=== PATIENT | male | born 1980 | race Caucasian/White ===

== ENCOUNTER 2023-11-09 19:41 | Emergency (ER) | payer MEDICAID, SELFPAY ==
[2023-11-09 19:52] VITALS: BP 148/67; PULSE 60; RESP 20; TEMP 36.6; O2SAT 100; BMI 17.8
--- NOTE | 2023-11-09 20:15 | ED_ITS ---
HPI - General Adult General Time Seen by Provider: 20:15 Date Seen: 11/09/23 Chief complaint: Skin/Abscess/Foreign Body Stated complaint: muscular pain Time Seen by Provider: 11/09/23 20:15 Source: patient, RN notes reviewed and old records reviewed Mode of arrival: ambulatory Limitations: no limitations History of Present Illness HPI narrative: [place] is a very pleasant 43-year-old gentleman with complicated past medical history including MS, colon cancer, history of stroke who comes to the emergency room with concerns regarding redness and pain in his right thigh. [place] states that the area on his right thigh became reddened and painful over the past 48 hours. He was seen at urgent care yesterday and placed on Keflex for what they thought was cellulitis. He comes to the emergency room today because his thigh is still incredibly painful and feels like it has gotten bigger. He notes no increase in redness however any denies fever or chills. He does injections for his MS 3 times a week and this is an area in which he injects. He has never had an infection like this before. He denies a history of MRSA. He has had some mild abdominal pain but denies nausea vomiting. Related Data Home Medications Medication Instructions Recorded Confirmed acetaminophen [Tylenol] PO 11/08/23 11/08/23 atorvastatin 20 mg tablet mg PO 11/08/23 11/08/23 cholecalciferol (vitamin D3) PO 11/08/23 11/08/23 interferon beta-1a (albumin) 44 subcut 11/08/23 11/08/23 mcg/0.5 mL subcutaneous pen injector (Rebif Rebidose) multivitamin with iron [Daily PO 11/08/23 11/08/23 Vitamin with Iron] sumatriptan succinate 100 mg tablet mg PO DAILY 11/08/23 11/08/23 Previous Rx's Medication Instructions Recorded cephalexin 500 mg capsule 500 mg PO QID 5 days #20 caps 11/08/23 sulfamethoxazole 800 1 tab PO BID #13 tabs 11/09/23 mg-trimethoprim 160 mg tablet (Bactrim DS) Allergies Allergy/AdvReac Type Severity Reaction Status Date / Time ibuprofen Allergy Severe GI Bleed Verified 11/09/23 19:55 simvastatin Allergy Mild Hives Verified 11/09/23 19:55 Review of Systems Status of ROS: Reports: 10 or more systems reviewed and unremarkable except as noted in History and below Const: Denies: fever or chills PFSH PFSH Social History Smoking Status: Never smoker Do you use any of these nicotine containing products: None Second hand tobacco smoke exposure: No How often do you have a drink containing alcohol: monthly or less How many standard drinks containing alcohol do you have on a typical day: 1 or 2 AUDIT-C Alcohol total score: 1 Non-prescribed substance use: denies use service: No Exam Narrative: Exam Narrative: [place] is alert and oriented. He presents with his significant other is very loving and supportive. External ears eyes nose clear. Heart with regular rate and rhythm and lungs are clear. Abdomen soft nontender. Examination of the right thighs shows a very slight pink area anterior row lateral mid thigh. There are 2 areas of superficial scabbing palmer colored the discomfort seems to be lateral to this area however. No groin lymphadenopathy. I do not palpate any fluctuance. He is able to move his legs without difficulty. Const: Vital Signs, click to edit/add: Vital Signs - 24 hr 11/09/23 19:52 Temperature 97.9 F Pulse Rate [Right Pulse Oximeter] 60 Respiratory Rate 20 Blood Pressure [Ri ght Upper Arm] 148/67 H Pulse Oximetry 100 Oxygen Delivery Me thod Room Air Documenting provider has reviewed patient's vital signs: yes Course Course ED Course: Differential diagnosis includes but is not limited to cellulitis, abscess, localized irritation. Recommend laboratory values to include a CBC, comprehensive panel, CRP as well as blood culture. Must keep in mind that patient is on medications which may limit his immune response. Therefore will also get blood cultures. CT of the right thigh is pending as well. Will need to rule out possibility of underlying necrotizing infection or abscess formation. Reevaluation(s) Reevaluation #1: CRP and white count reassuring at this time. CT shows no evidence of abscess. Vital Signs Vital signs: Initial Vital Signs Temperature 97.9 F 11/09/23 19:52 Temperature Source Temporal Artery Scan 11/09/23 19:52 Pulse Rate 60 11/09/23 19:52 Respiratory Rate 20 11/09/23 19:52 Blood Pressure 148/67 H 11/09/23 19:52 Blood Pressure Mean 94 11/09/23 19:52 Blood Pressure Position Sitting 11/09/23 19:52 Pulse Oximetry 100 11/09/23 19:52 Oxygen Delivery Method Room Air 11/09/23 19:52 Vital Signs Temperature 97.9 F 11/09/23 19:52 Pulse Rate 60 11/09/23 19:52 Respiratory Rate 20 11/09/23 19:52 Blood Pressure 148/67 H 11/09/23 19:52 Pulse Oximetry 100 11/09/23 19:52 Oxygen Delivery Method Room Air 11/09/23 19:52 Temperature 97.9 F 11/09/23 19:52 Pulse Rate 60 11/09/23 19:52 Respiratory Rate 20 11/09/23 19:52 Blood Pressure 148/67 H 11/09/23 19:52 Pulse Oximetry 100 11/09/23 19:52 Oxygen Delivery Method Room Air 11/09/23 19:52 Medical Decision Making MDM Narrative Medical decision making narrative: 1. Cellulitis- patient does have CT evidence of some inflammation and likely this is consistent with a cellulitis. No history of MRSA but given the fact that he has been on Keflex for 24 hours with what he perceives as worsening symptoms do elect to add additional antibiotic. I do think it is important that we cover for MRSA and therefore suggest Bactrim. there is some disagreement of on proper dosing whether it be 2 double-strength tabs b.i.d. or 1 tablet b.i.d.. Recent data shows no difference in outcomes and therefore we will use 1 tablet b.i.d..First dose given in the emergency room tonight with subsequent doses sent to his pharmacy. I would like him to continue his Keflex while using this medication. I would like him to push fluids, use warm packs to area of discomfort and to try to limit activity and walking. Therefore have also given him a note for work off through next SaturdayNovember 15. We did discuss the use of Bactrim which can increase rash formation. He should discontinue immediately if this should happen. 2. Disposition -home at this time. Push fluids. No work. Suggest follow-up with primary MD Dr. Leach at the [facility] over the next 6 days. If [place] develops fever, vomiting, worsening symptoms he should seek medical attention and not wait for a clinic visit. Medical Records Medical records reviewed: Yes I reviewed the patient's medical records Lab Data Lab results reviewed: Yes I reviewed the patient's lab results Labs: Lab Results 11/09/23 Range/Units 20:36 WBC 5.32 (4.50-11.00) K/uL RBC 3.35 L (4.30-5.90) m/uL Hgb 10.7 L (13.5-17.5) gm/dL Hct 32.7 L (37.0-53.0) % MCV 98 (80-100) fL MCH 32 (26-34) pg MCHC 33 (32-36) gm/dL RDW Coeff of Nikolas 13.4 (11.5-15.5) % Plt Count 266 (140-440) K/uL Neut % (Auto) 47.7 (42.0-72.0) % Lymph % (Auto) 29.7 (20-44) % [place] % (Auto) 11.1 H (0.0-11.0) % Eos % (Auto) 10.7 H (0.0-7.0) % Baso % (Auto) 0.6 (0.0-3.0) % Neut # (Auto) 2.54 (1.7-7.0) K/uL Lymph # (Auto) 1.58 (0.90-2.90) K/uL [place] # (Auto) 0.60 (0.00-0.90) K/UL Eos # (Auto) 0.60 H (0.00-0.50) K/uL Baso # (Auto) 0.03 (0.00-0.30) K/uL Abs Immat Gran (auto) 0.01 (0.00-0.30) K/uL Imm/Tot Granulo (auto) 0.2 % Sodium 140 (135-149) mmol/L Potassium 3.8 (3.6-5.1) mmol/L Chloride 105 (96-114) mmol/L Carbon Dioxide 27 (20-32) mmol/L Anion Gap 8 (7-15) mEq/L BUN 17 (5-24) mg/dL Creatinine 0.7 (0.5-1.5) mg/dL Estimated Creat Clear 116.64 Estimated GFR 117 ml/min Glucose 105 (60-115) mg/dL Calcium 8.7 (8.4-10.6) mg/dL Total Bilirubin 0.2 (0.1-1.5) mg/dL AST 34 (12-35) U/L ALT 36 (4-50) U/L Alkaline Phosphatase 63 (40-150) U/L C-Reactive Protein 0.7 (0.5-1.0) mg/dL Total Protein 7.4 (6.0-8.3) g/dL Albumin 4.2 (3.3-5.0) g/dL Imaging Data CT- Other: Attestation: I have reviewed the pertinent imaging results. My impression: No obvious abscess by my read. Radiologist's impression: Findings: Small region of subcutaneous inflammatory stranding in the proximal lateral thigh overlying the vastus lateralis. There are a few nonspecific hyperdense foci within this area. No focal fluid collection to indicate an abscess. No discrete muscular expansion or edema. The osseous structures are unremarkable. The imaged intrapelvic organs are unremarkable. Impression: Small region of subcutaneous inflammation in the proximal lateral thigh overlying the vastus lateralis. This could represent focal cellulitis. No evidence for abscess or osteomyelitis. Few nonspecific hyperdense foci in this area. Cannot entirely exclude foreign bodies/debris. Discharge Plan Discharge Clinical Impression: Cellulitis Patient Disposition: Home, Self-Care Condition: Unchanged Additional Instructions: Continue Bactrim tomorrow morning. Continue Keflex at this time. Please follow-up with your primary MD on Saturday for recheck. If you started experiencing fever chills vomiting or worsening symptoms you will need to return to the emergency room. Prescriptions: New sulfamethoxazole-trimethoprim [Bactrim DS] 800-160 mg tablet 1 tab PO BID Qty: 13 0RF No Action Rebif Rebidose 44 mcg/0.5 mL pen injector subcut sumatriptan succinate 100 mg tablet PO DAILY acetaminophen [Tylenol] PO atorvastatin 20 mg tablet PO multivitamin with iron [Daily Vitamin with Iron] PO cholecalciferol (vitamin D3) PO cephalexin 500 mg capsule 500 mg PO QID 5 Days Qty: 20 0RF Follow Up/Referrals: Nicolas Leach MD [Primary Care Provider] - Stand Alone Forms: MyHealth Info Instructions
--- NOTE | 2023-11-09 20:23 | CRLHL7_ITS ---
For Patients: As a result of the Century Cures Act, medical imaging exams and procedure reports are released immediately into your electronic medical record. You may view this report before your referring provider. If you have questions, please contact your health care provider. Indication: Skin redness, pain over proximal, lateral Right femur region Technique: Noncontrast CT of the right femur. Please note that all CT scans at this facility use dose modulation, iterative reconstruction, and/or weight-based dosing when appropriate to reduce radiation dose to as low as reasonably achievable. Comparison: None. Findings: Small region of subcutaneous inflammatory stranding in the proximal lateral thigh overlying the vastus lateralis. There are a few nonspecific hyperdense foci within this area. No focal fluid collection to indicate an abscess. No discrete muscular expansion or edema. The osseous structures are unremarkable. The imaged intrapelvic organs are unremarkable. Impression: Small region of subcutaneous inflammation in the proximal lateral thigh overlying the vastus lateralis. This could represent focal cellulitis. No evidence for abscess or osteomyelitis. Few nonspecific hyperdense foci in this area. Cannot entirely exclude foreign bodies/debris. Please note that all CT scans at this facility use dose modulation, iterative reconstruction, and/or weight-based dosing when appropriate to reduce radiation dose to as low as reasonably achievable. Dictated by Dhruv Martínez MD @ 11/09/2023 9:38:44 PM (Electronically Signed)
[2023-11-09 20:48] LABS: Basophils Absolute Auto 0.03 K/uL (0.00-0.30); Basophils Percent Auto 0.6 % (0.0-3.0); Eosinophils Percent Auto 10.7 % (0.0-7.0); Hematocrit 32.7 % (37.0-53.0); Hemoglobin* 10.7 gm/dL (13.5-17.5); Immature Granulocytes Abs Auto 0.01 K/uL (0.00-0.30); Immature Granulocytes Pct Auto 0.2 %; Lymphocytes Absolute Auto 1.58 K/uL (0.90-2.90); Lymphocytes Percent Auto 29.7 % (20-44); Mean Corpuscular HGB Conc 33 gm/dL (32-36); Mean Corpuscular Hemoglobin 32 pg (26-34); Mean Corpuscular Volume 98 fL (80-100); Monocytes Percent Auto 11.1 % (0.0-11.0); Neutrophils Absolute Auto 2.54 K/uL (1.7-7.0); Neutrophils Percent Auto 47.7 % (42.0-72.0); Platelet Count* 266 K/uL (140-440); RDW Coefficient of Variation % 13.4 % (11.5-15.5); Red Blood Count 3.35 m/uL (4.30-5.90); White Blood Count* 5.32 K/uL (4.50-11.00)
[2023-11-09 20:52] LABS: Slide Review Reflex No
[2023-11-09 21:09] LABS: Albumin* 4.2 g/dL (3.3-5.0); Chloride* 105 mmol/L (96-114); Potassium* 3.8 mmol/L (3.6-5.1); Sodium* 140 mmol/L (135-149)
[2023-11-09 21:11] LABS: Creatinine* 0.7 mg/dL (0.5-1.5); Est. Creatinine Clearance* 116.64; Estimated Glomerular Filt Rate 117 ml/min
[2023-11-09 21:12] LABS: Alanine Aminotransferase* 36 U/L (4-50); Alkaline Phosphatase* 63 U/L (40-150); Anion Gap 8 mEq/L (7-15); Aspartate Amino Transferase* 34 U/L (12-35); Bilirubin Total* 0.2 mg/dL (0.1-1.5); Blood Urea Nitrogen* 17 mg/dL (5-24); Carbon Dioxide* 27 mmol/L (20-32); Glucose* 105 mg/dL (60-115); Total Protein* 7.4 g/dL (6.0-8.3)
[2023-11-09 21:13] LABS: Calcium* 8.7 mg/dL (8.4-10.6)
[2023-11-09 21:15] LABS: C Reactive Protein* 0.7 mg/dL (0.5-1.0)
--- NOTE | 2023-11-09 22:28 | ED.NURSE ---
Pt discharged in stable condition. Work note given by Dr. Dwyer. Copy made and sent to medical records for patient chart.
== END 2023-11-09 22:28 | disposition home or self-care (01) ==
PROVIDERS: Emergency Provider Family Medicine; PCP Family Medicine
DX: L03.115 Cellulitis of right lower limb (principal)
CPT/HCPCS: 36415; 73700; 80053; 85025; 86140; 87040; 99284

== ENCOUNTER 2024-11-25 22:10 | Emergency (ER) | payer MEDICAID, SELFPAY ==
[2024-11-25 22:16] VITALS: BP 131/83; PULSE 72; RESP 16; TEMP 37; O2SAT 100; BMI 18.5
[2024-11-25 22:20] VITALS: RESP 16; TEMP 37; O2SAT 100
[2024-11-25 22:30] VITALS: O2SAT 100
--- OUTSIDE RECORDS SUMMARY | 2024-11-25 22:50 | XMS_ITS | Clinical Summary ---
Author Organization [employer] [facility] Address [place], [place] [address] Care Team Providers Care Section Weaver Name Role Phone Nicolas Leach MD Primary Care Provider Allergies Active Allergy Reactions Criticality Noted Date Comments Ibuprofen Other - Describe In Comment Field 10/17/2020 Red stools. Simvastatin Hives 08/14/2016 Medications multivitamin (MULTIPLE VITAMINS) tablet Take 1 tablet by mouth once daily. 0 5 Active Cholecalciferol, Vitamin D3, (VITAMIN D-3) 2,000 unit tablet Take 1 tablet by mouth once daily. 0 5 Active ferrous sulfate, 65 mg elemental, tablet Daily Active SUMAtriptan (IMITREX) 100 mg tablet TAKE 1 TABLET NEEDED FOR MIGRAINE. MAY REPEAT DOSE ONE TIME IN 2 HOURS IF MIGRAINE DOES NOT RESOLVE. DO NOT EXCEED 2 TABLETS IN 24 HOURS. 2 Active atorvastatin (LIPITOR) 20 mg tabletIndications: Mixed hyperlipidemia Take 1 Tablet (20 mg) by mouth at bedtime. 90 Tablet 3 5 Active REBIF REBIDOSE 44 mcg/0.5 mL pnij 7 025 Discontin ued(*Leora ent states no longer taking) atorvastatin (LIPITOR) 20 mg tabletIndications: Mixed hyperlipidemia Take 1 Tablet (20 mg) by mouth at bedtime. 90 Tablet 3 3 025 Discontin ued(Reord er (E-cancel not sent)) Active Problems Problem Noted Date Diagnosed Date colon cancer 11/2019. s/p Right Hemicoloctomy 02/0212/15/2019 Overview (12/15/2019): Colonoscopy 11/2019 cancer, polyp, repeat colonoscopy 1 year post surgery Assessment & Plan (11/29/2021 10:57 AM SPECIFICATIONS WRITER): Cancer free since 2019. Followed by GI. Myopia of both eyes 03/21/2017 Multiple sclerosis, relapsing-remitting 03/28/20 16 GERD (gastroesophageal reflux disease) 2 Mixed hyperlipidemia 03/21/2011 Insomnia, unspecified 08/21/2010 Migraine Resolved Problems Problem Noted Date Diagnosed Date Resolved Date Cerebrovascular accident (CVA) 08/14/2016 09/25/2019 Stroke 02/01/2014 08/14/2016 Stroke 10/30/2013 10/30/2013 Routine general medical exam ination at a health care facility 09/12/2011 11/02/2011 Overview (09/12/2011): 03-19-2011 Unspecified tinnitus 09/22/2010 011 Encounters Date Type Department Care Team Description 11/25/2024 Nurse Triage [facility] [address] [place] [address] Nicolas Leach MD Influenza Like Illness 11/02/2024 8:50 AM SPECIFICATIONS WRITER Office Visit [facility] [address] [place] [address] Nicolas Leach MD Physical (44 year old) 11/02/2024 Travel 08/28/2024 9:15 AM CDT Nurse/Clinic Staff Only [facility] [address] [place] [address] [address] Immunization/Injecti on; Immunization/Injecti on 08/28/2024 Travel 08/25/2024 Travel from Last 3 Months Immunizations Name Administration Dates Next Due AMB Influenza, IIV4 PF (=>6 mos Flulaval,Fluzone Fluarix)(Flu Clinic Only) 08/05/2020,08/11/2019,07/28/2014 COVID-19 vaccine ([employer] 30mcg/0.3mL) PF, MDV 02/07/2021,01/17/2021 INFLUENZA, IIV3 PF (AGE >= 6 MO) 08/28/2024 Influenza, IIV3 (Age >=3 years) 08/21/2013 Influenza, IIV4 08/09/2023,,08/14/2021,08/25/20 18,08/16/2017,08/14/2016,07/20/2015 Influenza, IIV4 (=>6mos) MDV 08/16/2017 Tdap 10/15/2023,03/19/2011 Family History * Patient is adopted Medical History Relation Name Comments Unknown Brother Jenn Velazquez Half brot her Alcohol/Drug Father Danny Escobar abandoned fami ly Unknown Father Danny Escobar Legal father Unknown Maternal Grandfather Unknown Unknown Maternal Grandmother Unknown Alcohol/Drug Mother Darleen Escobar at a yo [place] age in a MVA Unknown Mother Darleen Escobar Legal mother Cancer-prostate Neg. 1 Heart Disease Neg. 2 Diabetes Neg. 3 Seizures Neg. 4 Unknown Paternal Grandfather Unknown Unknown Paternal Grandmother Unknown Unknown Sister Gianna Velazquez Half-sister Relation Name Status Comments Brothmonica Velazquez Father Danny Escobar Maternal Grandfather Unknown Maternal Grandmother Unknown Mother Darleen Escobar Neg. 1 Neg. 2 Neg. 3 Neg. 4 Paternal Grandfather Unknown Paternal Grandmother Unknown Sister Gianna Velazquez Social History Tobacco Use Types Packs/Day Years Used Date Smoking Tobacco: Never Smokeless Tobacco: Never Tobacco Cessation:Counseling Given: No Alcohol Use Standard Drinks/Week Comments No 0 (1 standard drink = 0.6 oz pur e alcohol) PHQ-2 Answer Date Recorded PHQ-2 TOTAL SCORE 0 10/15/2023 Social Connections Answer Date Recorded Do you often feel lonely or isolated from those around you? 0 11/02/2024 Financial Resource Strain Answer Date R ecorded Difficulty of Paying Living Expenses 3 11/02/2024 Difficulty of Paying Living Expenses Not on file 11/02/2024 Food Insecurity Answer Date Recorded Do you worry your food will run out before you are able to buy more? 1 11/02/2024 Transportation Needs Answer Date Record ed Does lack of transportation keep you from medica l appointments? 1 11/02/2024 Does lack of transportation keep you from work, meetings or getting things that you need? 1 11/02/2024 Housing Stability Answer Date Recorded What is your housing situation today? 1 11/02/2024 Utilities Answer Date Recorded Do you have trouble paying f or utilities (for example, heat, electricity, water, phone)? 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 Not on file Not on file Not on file Obstetrics History Last Filed Vital Signs Vital Sign Reading Time Taken Comments Blood Pressure 125/79 11/02/2024 8:47 AM SPECIFICATIONS WRITER Pulse 55 11/02/2024 8:47 AM SPECIFICATIONS WRITER Temperature 36.7 C (98 F) 08/09/2023 10:32 AM CDT Respiratory Rate 16 09/04/2023 1:57 PM SPECIFICATIONS WRITER Oxygen Saturation 100% 11/02/2024 8:47 AM SPECIFICATIONS WRITER Inhaled Oxygen Concentration - - Weight 65 kg (143 lb 6.4 oz) 11/02/2024 8:47 AM SPECIFICATIONS WRITER Height 182 cm (5' 11.65) 11/02/2024 8:47 AM SPECIFICATIONS WRITER Body Mass Index 19.64 11/02/2024 8:47 AM SPECIFICATIONS WRITER Plan of Treatment Health Maintenance Due Date Last Done Comments Pneumococcal series for age 6-49 (1 of 2 - PCV) 1998 COVID-19 vaccine series (2023- season) 2024 09/04/2021, 02/07/2021, 01/17/2021 Depression screening for age 12+ 10/15/2024 10/15/2023, 10/05/2022, 08/06/2022, Additional history exists BMI (ht and wt on same day) for age 18+ 11/02/2025 11/02/2024, 11/26/2023, 10/15/2023, Additional history exists Lipids for age 45-75 11/02/2029 11/02/2024, 10/15/2023, 10/05/2022, Additional history exists Colonoscopy through age 75 12/11/202912/11, 12/11/2019, 12/11/2019 Tetanus booster 10/15/2033 10/15/2023, 03/19/2011 HIV for age 15-65 Completed 10/05/2022 Hepatitis C screening for ag e 18-79 Completed 10/05/2022 Tdap Completed 10/15/2023, 03/19/2011 Influenza for age 9-49 Completed 4, 08/09/2023, 08/10/2022, Additional history exists Procedures Procedure Name Priority Date/Time Associated Diagnosis Comments LIPID PANEL W REFLEX MEASURED LDL Routine 11/02/2024 9:18 AM SPECIFICATIONS WRITER Mixed hyperlipidemia BASIC METABOLIC PANEL Routine 11/02/2024 9:18 AM SPECIFICATIONS WRITER Prediabetes HEMOGLOBIN A1C Routine 11/02/2024 9:18 AM SPECIFICATIONS WRITER Prediabetes HEPATIC FUNCTION PANEL Routine 11/02/2024 9:18 AM SPECIFICATIONS WRITER Abnormal LFTs ANTI HIV 1/2 Routine 10/05/2022 9:46 AM SPECIFICATIONS WRITER Encounter for screening for HIV ANTI HCV Routine 10/05/2022 9:46 AM SPECIFICATIONS WRITER Need for hepatitis C screening test COLONOSCOPY 12/11/2019 8:18 AM SPECIFICATIONS WRITER from Last 3 Months or Most Recently Relevant to Health Maintenance Results * (ABNORMAL) HEMOGLOBIN A1C (11/02/2024 9:18 AM SPECIFICATIONS WRITER) HEMOGLOBIN A1C 5.8(H) <5.7 % of total Hgb [facility] Comment: For someone without known diabetes, a hemoglobin A1c value between 5.7% and 6.4% is consistent with prediabetes and should be confirmed with a follow-up test. For someone with known diabetes, a value <7% indicates that their diabetes is well controlled. A1c targets should be individualized based on duration of diabetes, age, comorbid conditions, and other considerations. This assay result is consistent with an increased risk of diabetes. Currently, no consensus exists regarding use of hemoglobin A1c for diagnosis of diabetes for children. Blood BLOOD SPECIMEN / Unknown 11/02/2024 9:18 AM SPECIFICATIONS WRITER 11/02/2024 9:19 AM SPECIFICATIONS WRITER Nicolas Leach MD CHEMISTRY Final Result [facility] [address] [place] [address], [facility] [address] [place] [address] * (ABNORMAL) LIPID PANEL W REFLEX MEASURED LDL (11/02/2024 9:18 AM SPECIFICATIONS WRITER) [facility] Signature CHOLESTEROL, TOTAL 175 <200 mg/dL [facility] HDL CHOLESTEROL 59 > OR = 40 mg/dL [facility] TRIGLYCERIDES 70 <150 mg/dL [facility] LDL-CHOLESTEROL 100(H) mg/dL (calc) [facility] Comment: Reference range: <100 Desirable range <100 mg/dL for primary prevention; <70 mg/dL for patients with CHD or diabetic patients with > or = 2 CHD risk factors. LDL-C is now calculated using the Matt-Ordonez calculation, which is a validated novel method providing better accuracy than the Friedewald equation in the estimation of LDL-C. Matt GOVEA et al. MICHAEL. 2013;310(19): 2079-4933 (http://education.Clipik/faq/JIK347) CHOL/HDLC RATIO 3.0 <5.0 (calc) [facility] NON HDL CHOLESTEROL 116 <130 mg/dL (calc) [facility] Comment: For patients with diabetes plus 1 major ASCVD risk factor, treating to a non-HDL-C goal of <100 mg/dL (LDL-C of <70 mg/dL) is considered a therapeutic option. Blood BLOOD SPECIMEN / Unknown 11/02/2024 9:18 AM SPECIFICATIONS WRITER 11/02/2024 9:19 AM SPECIFICATIONS WRITER us Nicolas Leach MD CHEMISTRY Final Result Performing Organization Address [facility]/ZIP Co de Phone Number [facility] [address] [facility] [place] [address], [place] [phone] [facility] [address] [facility] [place] [address] * HEPATIC FUNCTION PANEL (11/02/2024 9:18 AM SPECIFICATIONS WRITER) PROTEIN, TOTAL 7.3 6.1 - 8.1 g/dL [facility] ALBUMIN 4.8 3.6 - 5.1 g/dL [facility] GLOBULIN 2.5 1.9 - 3.7 g/dL (calc) [facility] ALBUMIN/GLOBULIN RATIO 1.9 1.0 - 2.5 (calc) [facility] BILIRUBIN, TOTAL 0.8 0.2 - 1.2 mg/dL [facility] BILIRUBIN, DIRECT 0.2 < OR = 0.2 mg/dL [facility] BILIRUBIN, INDIRECT 0.6 0.2 - 1.2 mg/dL (calc) [facility] ALKALINE PHOSPHATASE 94 36 - 130 U/L [facility] AST 31 10 - 40 U/L [facility] ALT 36 9 - 46 U/L [facility] Blood BLOOD SPECIMEN / Unknown 11/02/2024 9:18 AM SPECIFICATIONS WRITER 11/02/2024 9:19 AM SPECIFICATIONS WRITER Nicolas Leach MD CHEMISTRY Final Result [facility] [address] [place] [address], [facility] [address] [place] [address] * BASIC METABOLIC PANEL (11/02/2024 9:18 AM SPECIFICATIONS WRITER) GLUCOSE 91 65 - 99 mg/dL [facility] Comment: Fasting reference interval UREA NITROGEN (BUN) 19 7 - 25 mg/dL [facility] CREATININE 1.13 0.60 - 1.29 mg/dL [facility] EGFR 82 > OR = 60 mL/min/1. 73m2 [facility] BUN/CREATININE RATIO SEE NOTE: 6 - 22 (calc) [facility] Comment: Not Reported: BUN and Creatinine are within reference range. SODIUM 141 135 - 146 mmol/L [facility] POTASSIUM 4.5 3.5 - 5.3 mmol/L [facility] CHLORIDE 105 98 - 110 mmol/L [facility] CARBON DIOXIDE 27 20 - 32 mmol/L [facility] ELECTROLYTE BALANCE 9 7 - 17 mmol/L (calc) [facility] CALCIUM 9.9 8.6 - 10.3 mg/dL [facility] Blood BLOOD SPECIMEN / Unknown 11/02/2024 9:18 AM SPECIFICATIONS WRITER 11/02/2024 9:19 AM SPECIFICATIONS WRITER us Nicolas Leach MD CHEMISTRY Final Result [facility] [address] [place] [address], [place] [phone] [address] * ANTI HCV (10/05/2022 9:46 AM SPECIFICATIONS WRITER) HEPATITIS C ANTIBODY Non-React darin Non-React darin 10/07/2022 11:19 AM SPECIFICATIONS WRITER [facility] Comment:Antibodies to HCV no t detected; does not exclude the possibility of exposure to HCV. Blood BLOOD SPECIMEN / Unknown Venipuncture / Unknown 10/05/2022 9:46 AM SPECIFICATIONS WRITER 10/05/2022 9:47 AM SPECIFICATIONS WRITER us Nicolas Leach MD SEND OUTS Final Result [facility] [address] [place] [address], [place] * ANTI HIV 1/2 (10/05/2022 9:46 AM SPECIFICATIONS WRITER) HIV-1/HIV-2 ANTIBODY Non-Reacti ve Non-Reacti ve 10/07/2022 11:19 AM SPECIFICATIONS WRITER [facility] Comment:HIV-1 p24 and HIV-1/ HIV-2 Ab not detected. Blood BLOOD SPECIMEN / Unknown Venipuncture / Unknown 10/05/2022 9:46 AM SPECIFICATIONS WRITER 10/05/2022 9:47 AM SPECIFICATIONS WRITER us Nicolas Leach MD SEND OUTS Final Result [facility] [address] [place] [address], [place] * COLONOSCOPY (12/11/2019 8:18 AM SPECIFICATIONS WRITER) 12/11/2019 8:18 AM SPECIFICATIONS WRITER Narrative Transcriptions Matt Aguilar MD - 12/11/2019 9:01 AM CST Patient Name: Berlin Barakat Procedure Date: 12/11/2019 Gender: Male Date of : 1980 Admit Type: Ambulatory Procedure: Colonoscopy Proceduralist: Matt gAuilar MD , Lea Malcolm, RN (Nurse), Rebeka Morgan (Nurse) Indications/Pre-Op Diagnosis: Unexplained iron deficiency anemia, This isthe patient's first colonoscopy, Positive fecal immunochemical test Medications: Fentanyl 100 micrograms IV, Midazolam 4 mgIV, (medications documented represent totaldosages for multiple procedures) Procedure Description: The patient had risks, benefits and alternatives explained to andgave informed consent. The patient had a stable cardiopulmonary status and judged an adequate candidate for conscious sedation. The [id number] was passed through the anus and advanced tothe cecum, identified by appendiceal orifice and ileocecal valve. The colonoscopy was performed without difficulty. The patient toleratedthe procedure well. The quality of the bowel preparation was good. The ileocecal valve, appendiceal orifice, and rectum were photographed. Complications: No immediate complications. Estimated Blood Loss & Specimen: Estimated blood loss: none. Specimen collected - Yes and sent to Laboratory Findings: The perianal and digital rectal examinations were normal. A 12 mm polyp was found in the sigmoid colon at 30 cm. The polyp was pedunculated. The polyp was removed with a hot snare. Resection and retrieval were complete. A 3 mm polyp was found in the transverse colon. The polyp wassessile. The polyp was removed with a cold snare. Resection and retrieval were complete. An infiltrative, sessile and ulcerated non-obstructing large mass was found in the mid ascending colon. The mass was partiallycircumferential (involving one-half of the lumen circumference). The mass measuredthree cm in length. In addition, its diameter measured thirty mm. Nobleeding was present. Biopsies were taken with a cold forceps for histology. The exam was otherwise without abnormality on direct and retroflexion views. Impressions/Post-Op Diagnosis: - One 12 mm polyp in the sigmoid colon, removed with a hot snare. Resected and retrieved. - One 3 mm polyp in the transverse colon, removed with a cold snare. Resected and retrieved. - Likely malignant tumor in the mid ascending colon. Biopsied. - The examination was otherwise normal on direct and retroflexionviews. Recommendation: - Patient has a contact number available for emergencies. The signsand symptoms of potential delayed complications were discussed with the patient. Return to normal activities tomorrow. Written discharge instructions were provided to the patient. - Resume previous diet. - Continue present medications. - Await pathology results. - Repeat colonoscopy is recommended. The colonoscopy date will be determined after pathology results from today's exam become available for review. Moderate Sedation: Moderate (conscious) sedation was administered by the endoscopy nurse and supervised by the endoscopist. The following parameters were monitored: oxygen saturation, heart rate, respiratory rate, blood pressure, adequacy of pulmonary ventilation and reponse to care. Please refer to the patien'ts medical record flowsheets and nursing notes for moderate sedation details. Total physician intraservice time was 38 minutes. Matt Aguilar MD 12/11/2019 9:00:55 AM This report has been signed electronically. Note Initiated On: 12/11/2019 8:18 AM Procedure Code(s): --- Professional --- 51370, Colonoscopy, flexible; with removalof tumor(s), polyp(s), or other lesion(s) bysnare technique 11517, 59, Colonoscopy, flexible; withbiopsy, single or multiple Diagnosis Code(s): --- Professional --- D12.5, Benign neoplasm of sigmoid colon D12.3, Benign neoplasm of transverse colon (hepatic flexure or splenic flexure) D49.0, Neoplasm of unspecified behavior of digestive system D50.9, Iron deficiency anemia, unspecified R19.5, Other fecal abnormalities CPT copyright 2018 [place] [employer]. All rights reserved. The codes documented in this report are preliminary and upon fabricator foam rubber reviewmay be revised to meet current compliance requirements. Scope In: 8:19:06 AM Scope Withdrawal Time 0 hours 10 minutes 31 seconds Scope Out: 8:44:49 AM us Matt Aguilar MD PROCEDURE ORD Final Res ult from Last 3 Months or Most Recently Relevant to Health Maintenance Insurance [facility] [id number] [id number] [facility] Care Teams Section Weaver Relationship Specialty Start Date End Date Nicolas Leach MD [address] [place] [address] PCP - General Family Practice 11/05/14
--- NOTE | 2024-11-25 22:58 | ED_ITS ---
HPI - General Adult General Date Seen: 11/25/24 <Starla Hare MD - Last Filed: 11/27/24 11:18> Chief complaint: Fever <Starla Hare MD - Last Filed: 11/27/24 11:18> Stated complaint: chills/weakness/fever <Starla Hare MD - Last Filed: 11/27/24 11:18> Time Seen by Provider: 11/25/24 22:18 <Starla Hare MD - Last Filed: 11/27/24 11:18> History of Present Illness HPI narrative: Patient is a 44-year-old male with a 2 day history of chills and weakness. He says he has not had a cough but he has had a little bit of a headache and some body aches. He feels like he might have the flu. He is concerned because if he isn't taking Tylenol he has a fever up to 100.7. No difficulty breathing, no abdominal pain, vomiting or diarrhea. No unusual rashes. No other concerns. He has a history says of cancer but has been cancer free for several years, no current therapy. <Starla Hare MD - Last Filed: 11/27/24 11:18> Related Data Home medications: Home Medications ?Medication ?Instructions ?Recorded ?Confirmed acetaminophen [Tylenol] PO 11/08/23 11/08/23 atorvastatin 20 mg tablet mg PO 11/08/23 11/08/23 cholecalciferol (vitamin D3) PO 11/08/23 11/08/23 interferon beta-1a (albumin) 44 subcut 11/08/23 11/08/23 mcg/0.5 mL subcutaneous pen injector (Rebif Rebidose) multivitamin with iron [Daily PO 11/08/23 11/08/23 Vitamin with Iron] sumatriptan succinate 100 mg tablet mg PO DAILY 11/08/23 11/08/23 Previous Rx's ?Medication ?Instructions ?Recorded sulfamethoxazole 800 1 tab PO BID #13 tabs 11/09/23 mg-trimethoprim 160 mg tablet (Bactrim DS) ciprofloxacin HCl 500 mg tablet 500 mg PO BID #60 tabs 11/26/24 <Starla Hare MD - Last Filed: 11/27/24 11:18> Allergies/adverse reactions: Allergies Allergy/AdvReac Type Severity Reaction Status Date / Time ibuprofen Allergy Severe GI Bleed Verified 11/09/23 19:55 simvastatin Allergy Mild Hives Verified 11/09/23 19:55 <Starla Hare MD - Last Filed: 11/27/24 11:18> Review of Systems Status of ROS: Reports: 10 or more systems reviewed and unremarkable except as noted in History and below <Starla Hare MD - Last Filed: 11/27/24 11:18> [facility] Social History: Social History Smoking Status: Never smoker Do you use any of these nicotine containing products: None Second hand tobacco smoke exposure: No How often do you have a drink containing alcohol: monthly or less How many standard drinks containing alcohol do you have on a typical day: 1 or 2 AUDIT-C Alcohol total score: 1 Non-prescribed substance use: denies use service: No <Starla Hare MD - Last Filed: 11/27/24 11:18> Exam Narrative: Exam Narrative: Vital signs reviewed In general, alert, nontoxic mid aged male. Head: Normocephalic, atraumatic. Eyes: Sclera clear. Pupils equal and reactive. ENT: Mucous membranes moist. Neck: Supple without adenopathy. Heart: Regular rate and rhythm without murmur. Lungs: Clear. No increased work of breathing, crackles or wheezes. Abdomen: Soft, nontender to palpation. Extremities: Well perfused, pulses intact. No significant edema. Neurologic: Alert, conversant. Speech fluent, face symmetric. Moves all extremities equally. Skin: Warm, dry well perfused. Affect: Normal. <Starla Hare MD - Last Filed: 11/27/24 11:18> Const: Vital Signs, click to edit/add: Vital Signs - 24 hr 11/25/24 22:16 11/25/24 22:20 11/25/24 22:30 Temperature 98.6 F 98.6 F Pulse Rate [Pulse Oximeter] 72 Respiratory Rate 16 16 Blood Pressure [Ri ght Upper Arm] 131/83 Pulse Oximetry 100 100 100 Oxygen Delivery Me thod Room Air Room Air 11/26/24 00:55 Temperature 98.4 F Pulse Rate [Pulse Oximeter] 65 Respiratory Rate 16 Blood Pressure [Ri ght Upper Arm] 100/69 Pulse Oximetry 98 Oxygen Delivery Me thod Room Air <Starla Hare MD - Last Filed: 11/27/24 11:18> Vital Signs, click to edit/add: Vital Signs - 24 hr 11/25/24 22:16 11/25/24 22:20 11/25/24 22:30 Temperature 98.6 F 98.6 F Pulse Rate [Pulse Oximeter] 72 Respiratory Rate 16 16 Blood Pressure [Ri ght Upper Arm] 131/83 Pulse Oximetry 100 100 100 Oxygen Delivery Me thod Room Air Room Air 11/26/24 00:55 Temperature 98.4 F Pulse Rate [Pulse Oximeter] 65 Respiratory Rate 16 Blood Pressure [Ri ght Upper Arm] 100/69 Pulse Oximetry 98 Oxygen Delivery Me thod Room Air <Marilou Alston MD - Last Filed: 11/26/24 01:47> Course Course ED Course: Viral swab is pending. Will check a few basic labs as well. Viral swab is negative. His white blood cell count returned markedly elevated at 20,000 thousand. He has a left shift with 85% neutrophils. This is somewhat concerning in terms of suggesting a bacterial infection of some kind. I have reviewed symptoms with him, he continues to deny anything focal. He has a little bit of a headache but it is mild, does not have significant sinus symptoms does not have any neck pain. He has not had any unusual rashes. He specifically denies sore throat, chest pain, shortness of breath, cough, abdominal pain of any kind, anorexia, nausea, vomiting, diarrhea, bloody stools, urinary symptoms. He did have me look at a spot on his left foot where he said he had a ?cut; this appears to be a ruptured small blister without any surrounding evidence of infection. As result, it somewhat difficult to know where to look in terms of a source. He does self catheterization secondary to neurogenic bladder and so certainly checking a urine make sense. I have added on a lactate, procalcitonin, and LFTs. I am signing him out to Dr. Alston, will image chest abdomen and pelvis given his medical history of MS and colon cancer status post hemicolectomy. Please see her addendum for results of the studies. <Starla Hare MD - Last Filed: 11/27/24 11:18> Reevaluation(s) Time of Reevaluation #1: 01:43 <Marilou Alston MD - Last Filed: 11/26/24 01:47> Reevaluation #1: Dr. Alston- I assumed care for patient from Dr. Hare. Certainly concerning blood work in fever history. We elected to perform a CT of the chest abdomen and pelvis and other than some mild enlargement of the prostate, it is otherwise reassuring. I did sit down and talk with patient for a while regarding his neurogenic bladder and he really does not have much sensation of bladder fullness and I do question if he would be symptomatic to prostatitis with his MS. There were no other obvious signs of bacterial infection on his scans, he does not have any signs or risk factors for skin sources. We have of course collected blood cultures and those are pending. I do certainly think this could be a case of minimally symptomatic prostatitis. Patient will need follow-up with his primary care team for repeat PSA, potentially prostate imaging. Counseled patient that unfortunately the failure rate for treatment of prostatitis can be as high as 20% even with proper treatment. Cipro will be prescribed for 1 month, 1st dose given here in ED. For most, the fevers to improve within 3 days but continue the course of antibiotics for best chance at resolution. Copy of his CT report was given for his follow-up. Patient verbalizes understanding and agreement of plan, written instructions provided as well. <Marilou Alston MD - Last Filed: 11/26/24 01:47> Vital Signs Vital signs: Initial Vital Signs Temperature 98.6 F 11/25/24 22:16 Temperature Source Temporal Artery Scan 11/25/24 22:16 Pulse Rate 72 11/25/24 22:16 Respiratory Rate 16 11/25/24 22:16 Blood Pressure 131/83 11/25/24 22:16 Blood Pressure Mean 99 11/25/24 22:16 Blood Pressure Position Sitting 11/25/24 22:16 Pulse Oximetry 100 11/25/24 22:16 Oxygen Delivery Method Room Air 11/25/24 22:16 Vital Signs Temperature 98.6 F 11/25/24 22:16 Pulse Rate 72 11/25/24 22:16 Respiratory Rate 16 11/25/24 22:16 Blood Pressure 131/83 11/25/24 22:16 Pulse Oximetry 100 11/25/24 22:16 Oxygen Delivery Method Room Air 11/25/24 22:16 Temperature 98.4 F 11/26/24 01:52 Pulse Rate 65 11/26/24 01:52 Respiratory Rate 16 11/26/24 01:52 Blood Pressure 100/69 11/26/24 01:52 Pulse Oximetry 98 11/26/24 00:55 Oxygen Delivery Method Room Air 11/26/24 00:55 <Starla Hare MD - Last Filed: 11/27/24 11:18> Initial Vital Signs Temperature 98.6 F 11/25/24 22:16 Temperature Source Temporal Artery Scan 11/25/24 22:16 Pulse Rate 72 11/25/24 22:16 Respiratory Rate 16 11/25/24 22:16 Blood Pressure 131/83 11/25/24 22:16 Blood Pressure Mean 99 11/25/24 22:16 Blood Pressure Position Sitting 11/25/24 22:16 Pulse Oximetry 100 11/25/24 22:16 Oxygen Delivery Method Room Air 11/25/24 22:16 Vital Signs Temperature 98.6 F 11/25/24 22:16 Pulse Rate 72 11/25/24 22:16 Respiratory Rate 16 11/25/24 22:16 Blood Pressure 131/83 11/25/24 22:16 Pulse Oximetry 100 11/25/24 22:16 Oxygen Delivery Method Room Air 11/25/24 22:16 Temperature 98.4 F 11/26/24 01:52 Pulse Rate 65 11/26/24 01:52 Respiratory Rate 16 11/26/24 01:52 Blood Pressure 100/69 11/26/24 01:52 Pulse Oximetry 98 11/26/24 00:55 Oxygen Delivery Method Room Air 11/26/24 00:55 <Marilou Alston MD - Last Filed: 11/26/24 01:47> Medications Administered Medications: Discontinued Medications Generic Name Dose Route Start Last Admin Trade Name Freq PRN Reason Stop Dose Admin Ciprofloxacin 500 mg 11/26/24 01:39 11/26/24 01:46 Ciprofloxacin 500 Mg Tablet PO 11/26/24 01:40 500 mg ONCE ONE Administration <Starla Hare MD - Last Filed: 11/27/24 11:18> Discontinued Medications Generic Name Dose Route Start Last Admin Trade Name iMya PRN Reason Stop Dose Admin Ciprofloxacin 500 mg 11/26/24 01:39 11/26/24 01:46 Ciprofloxacin 500 Mg Tablet PO 11/26/24 01:40 500 mg ONCE ONE Administration <Marilou Alston MD - Last Filed: 11/26/24 01:47> Medical Decision Making Lab Data Lab results reviewed: Yes I reviewed the patient's lab results <Marilou Alston MD - Last Filed: 11/26/24 01:47> Lab results narrative: Marked leukocytosis with left shift suggestive of bacterial etiology. Elevated CRP, reassuring urinalysis. Normal viral swabs. <Marilou Alston MD - Last Filed: 11/26/24 01:47> Labs: Lab Results 11/25/24 11/25/24 11/25/24 Range/Units 22:12 22:55 23:32 WBC 20.11 H (4.50-11.00) K/uL RBC 3.92 L (4.30-5.90) m/uL Hgb 12.3 L (13.5-17.5) gm/dL Hct 37.7 (37.0-53.0) % MCV 96 (80-100) fL MCH 31 (26-34) pg MCHC 33 (32-36) gm/dL RDW Coeff of Nikolas 13.6 (11.5-15.5) % Plt Count 258 (140-440) K/uL Neut % (Auto) 85.2 H (42.0-72.0) % Lymph % (Auto) 4.8 L (20-44) % [place] % (Auto) 8.4 (0.0-11.0) % Eos % (Auto) 0.7 (0.0-7.0) % Baso % (Auto) 0.2 (0.0-3.0) % Neut # (Auto) 17.10 H (1.7-7.0) K/uL Lymph # (Auto) 1.00 (0.90-2.90) K/uL [place] # (Auto) 1.70 H (0.00-0.90) K/UL Eos # (Auto) 0.10 (0.00-0.50) K/uL Baso # (Auto) 0.00 (0.00-0.30) K/uL Abs Immat Gran (auto) 0.10 (0.00-0.30) K/uL Imm/Tot Granulo (auto) 0.7 % Diff Slide Review Acceptable Review (Acceptable) Sodium 137 (135-149) mmol/L Potassium 4.1 (3.6-5.1) mmol/L Chloride 105 (96-114) mmol/L Carbon Dioxide 26 (20-32) mmol/L Anion Gap 6 L (7-15) mEq/L BUN 14 (5-24) mg/dL Creatinine 0.9 (0.5-1.5) mg/dL Estimated Creat Clear 93.10 Estimated GFR 107 ml/min Glucose 107 (60-115) mg/dL Lactate (0.5-1.9) mmol/L Calcium 8.6 (8.4-10.6) mg/dL Total Bilirubin (0.1-1.5) mg/dL Direct Bilirubin (0.0-0.5) mg/dL AST (12-35) U/L ALT (4-50) U/L Alkaline Phosphatase (40-150) U/L C-Reactive Protein 7.8 H (0.5-1.0) mg/dL Total Protein (6.0-8.3) g/dL Albumin (3.3-5.0) g/dL Procalcitonin (<0.50) ng/mL Urine Color Yellow (Yellow) Urine Appearance Clear (Clear) Urine pH 7.0 (5.0-8.5) Ur Specific [place] 1.015 (1.000-1.030) Urine Protein Negative (Negative) Urine Glucose (UA) Negative (Negative) Urine Ketones Negative (Negative) Urine Blood Trace-lysed A (Negative) Urine Nitrite Negative (Negative) Urine Bilirubin Negative (Negative) Urine Urobilinogen 0.2 (0.2-1.0) Ur Leukocyte Esterase Negative (Negative) Urine RBC 0-2 (0-2) Urine WBC 0-2 (0-5) Ur Squamous Epith Cells None (None-Few) Urine Bacteria None (None) SARS-CoV-2 (PCR) Negative SARS-CoV-2 (Negative) Influenza Type A (PCR) Negative PCR FLU A (Negative) Influenza Type B (PCR) Negative PCR FLU B (Negative) RSV (PCR) Negative PCR RSV (Negative) 11/25/24 Range/Units 23:46 WBC (4.50-11.00) K/uL RBC (4.30-5.90) m/uL Hgb (13.5-17.5) gm/dL Hct (37.0-53.0) % MCV (80-100) fL MCH (26-34) pg MCHC (32-36) gm/dL RDW Coeff of Nikolas (11.5-15.5) % Plt Count (140-440) K/uL Neut % (Auto) (42.0-72.0) % Lymph % (Auto) (20-44) % [place] % (Auto) (0.0-11.0) % Eos % (Auto) (0.0-7.0) % Baso % (Auto) (0.0-3.0) % Neut # (Auto) (1.7-7.0) K/uL Lymph # (Auto) (0.90-2.90) K/uL [place] # (Auto) (0.00-0.90) K/UL Eos # (Auto) (0.00-0.50) K/uL Baso # (Auto) (0.00-0.30) K/uL Abs Immat Gran (auto) (0.00-0.30) K/uL Imm/Tot Granulo (auto) % Diff Slide Review (Acceptable) Sodium (135-149) mmol/L Potassium (3.6-5.1) mmol/L Chloride (96-114) mmol/L Carbon Dioxide (20-32) mmol/L Anion Gap (7-15) mEq/L BUN (5-24) mg/dL Creatinine (0.5-1.5) mg/dL Estimated Creat Clear Estimated GFR ml/min Glucose (60-115) mg/dL Lactate 0.6 (0.5-1.9) mmol/L Calcium (8.4-10.6) mg/dL Total Bilirubin 0.6 (0.1-1.5) mg/dL Direct Bilirubin 0.2 (0.0-0.5) mg/dL AST 31 (12-35) U/L ALT 39 (4-50) U/L Alkaline Phosphatase 71 (40-150) U/L C-Reactive Protein (0.5-1.0) mg/dL Total Protein 7.0 (6.0-8.3) g/dL Albumin 4.0 (3.3-5.0) g/dL Procalcitonin 0.30 (<0.50) ng/mL Urine Color (Yellow) Urine Appearance (Clear) Urine pH (5.0-8.5) Ur Specific [place] (1.000-1.030) Urine Protein (Negative) Urine Glucose (UA) (Negative) Urine Ketones (Negative) Urine Blood (Negative) Urine Nitrite (Negative) Urine Bilirubin (Negative) Urine Urobilinogen (0.2-1.0) Ur Leukocyte Esterase (Negative) Urine RBC (0-2) Urine WBC (0-5) Ur Squamous Epith Cells (None-Few) Urine Bacteria (None) SARS-CoV-2 (PCR) (Negative) Influenza Type A (PCR) (Negative) Influenza Type B (PCR) (Negative) RSV (PCR) (Negative) <Starla Hare MD - Last Filed: 11/27/24 11:18> Lab Results 11/25/24 11/25/24 11/25/24 Range/Units 22:12 22:55 23:32 WBC 20.11 H (4.50-11.00) K/uL RBC 3.92 L (4.30-5.90) m/uL Hgb 12.3 L (13.5-17.5) gm/dL Hct 37.7 (37.0-53.0) % MCV 96 (80-100) fL MCH 31 (26-34) pg MCHC 33 (32-36) gm/dL RDW Coeff of Nikolas 13.6 (11.5-15.5) % Plt Count 258 (140-440) K/uL Neut % (Auto) 85.2 H (42.0-72.0) % Lymph % (Auto) 4.8 L (20-44) % [place] % (Auto) 8.4 (0.0-11.0) % Eos % (Auto) 0.7 (0.0-7.0) % Baso % (Auto) 0.2 (0.0-3.0) % Neut # (Auto) 17.10 H (1.7-7.0) K/uL Lymph # (Auto) 1.00 (0.90-2.90) K/uL [place] # (Auto) 1.70 H (0.00-0.90) K/UL Eos # (Auto) 0.10 (0.00-0.50) K/uL Baso # (Auto) 0.00 (0.00-0.30) K/uL Abs Immat Gran (auto) 0.10 (0.00-0.30) K/uL Imm/Tot Granulo (auto) 0.7 % Diff Slide Review Acceptable Review (Acceptable) Sodium 137 (135-149) mmol/L Potassium 4.1 (3.6-5.1) mmol/L Chloride 105 (96-114) mmol/L Carbon Dioxide 26 (20-32) mmol/L Anion Gap 6 L (7-15) mEq/L BUN 14 (5-24) mg/dL Creatinine 0.9 (0.5-1.5) mg/dL Estimated Creat Clear 93.10 Estimated GFR 107 ml/min Glucose 107 (60-115) mg/dL Lactate (0.5-1.9) mmol/L Calcium 8.6 (8.4-10.6) mg/dL Total Bilirubin (0.1-1.5) mg/dL Direct Bilirubin (0.0-0.5) mg/dL AST (12-35) U/L ALT (4-50) U/L Alkaline Phosphatase (40-150) U/L C-Reactive Protein 7.8 H (0.5-1.0) mg/dL Total Protein (6.0-8.3) g/dL Albumin (3.3-5.0) g/dL Procalcitonin (<0.50) ng/mL Urine Color Yellow (Yellow) Urine Appearance Clear (Clear) Urine pH 7.0 (5.0-8.5) Ur Specific [place] 1.015 (1.000-1.030) Urine Protein Negative (Negative) Urine Glucose (UA) Negative (Negative) Urine Ketones Negative (Negative) Urine Blood Trace-lysed A (Negative) Urine Nitrite Negative (Negative) Urine Bilirubin Negative (Negative) Urine Urobilinogen 0.2 (0.2-1.0) Ur Leukocyte Esterase Negative (Negative) Urine RBC 0-2 (0-2) Urine WBC 0-2 (0-5) Ur Squamous Epith Cells None (None-Few) Urine Bacteria None (None) SARS-CoV-2 (PCR) Negative SARS-CoV-2 (Negative) Influenza Type A (PCR) Negative PCR FLU A (Negative) Influenza Type B (PCR) Negative PCR FLU B (Negative) RSV (PCR) Negative PCR RSV (Negative) 11/25/24 Range/Units 23:46 WBC (4.50-11.00) K/uL RBC (4.30-5.90) m/uL Hgb (13.5-17.5) gm/dL Hct (37.0-53.0) % MCV (80-100) fL MCH (26-34) pg MCHC (32-36) gm/dL RDW Coeff of Nikolas (11.5-15.5) % Plt Count (140-440) K/uL Neut % (Auto) (42.0-72.0) % Lymph % (Auto) (20-44) % [place] % (Auto) (0.0-11.0) % Eos % (Auto) (0.0-7.0) % Baso % (Auto) (0.0-3.0) % Neut # (Auto) (1.7-7.0) K/uL Lymph # (Auto) (0.90-2.90) K/uL [place] # (Auto) (0.00-0.90) K/UL Eos # (Auto) (0.00-0.50) K/uL Baso # (Auto) (0.00-0.30) K/uL Abs Immat Gran (auto) (0.00-0.30) K/uL Imm/Tot Granulo (auto) % Diff Slide Review (Acceptable) Sodium (135-149) mmol/L Potassium (3.6-5.1) mmol/L Chloride (96-114) mmol/L Carbon Dioxide (20-32) mmol/L Anion Gap (7-15) mEq/L BUN (5-24) mg/dL Creatinine (0.5-1.5) mg/dL Estimated Creat Clear Estimated GFR ml/min Glucose (60-115) mg/dL Lactate 0.6 (0.5-1.9) mmol/L Calcium (8.4-10.6) mg/dL Total Bilirubin 0.6 (0.1-1.5) mg/dL Direct Bilirubin 0.2 (0.0-0.5) mg/dL AST 31 (12-35) U/L ALT 39 (4-50) U/L Alkaline Phosphatase 71 (40-150) U/L C-Reactive Protein (0.5-1.0) mg/dL Total Protein 7.0 (6.0-8.3) g/dL Albumin 4.0 (3.3-5.0) g/dL Procalcitonin 0.30 (<0.50) ng/mL Urine Color (Yellow) Urine Appearance (Clear) Urine pH (5.0-8.5) Ur Specific [place] (1.000-1.030) Urine Protein (Negative) Urine Glucose (UA) (Negative) Urine Ketones (Negative) Urine Blood (Negative) Urine Nitrite (Negative) Urine Bilirubin (Negative) Urine Urobilinogen (0.2-1.0) Ur Leukocyte Esterase (Negative) Urine RBC (0-2) Urine WBC (0-5) Ur Squamous Epith Cells (None-Few) Urine Bacteria (None) SARS-CoV-2 (PCR) (Negative) Influenza Type A (PCR) (Negative) Influenza Type B (PCR) (Negative) RSV (PCR) (Negative) <Marilou Alston MD - Last Filed: 11/26/24 01:47> Imaging Data CT Chest/Ab/Pelvis: Attestation: I have reviewed the pertinent imaging results. <Marilou Alston MD - Last Filed: 11/26/24 01:47> Radiologist's impression: FINDINGS: CHEST: Cardiovascular: The heart has an unremarkable appearance and size. The pulmonary arteries are unremarkable in appearance. No sign of aneurysm or dissection in the thoracic aorta. Mediastinum: No mass or adenopathy seen. Lung: Both lungs are unremarkable in appearance. Pleura and pericardium: No sign of pleural effusion seen. No significant pericardial effusion is present. Chest wall and axilla: No mass or adenopathy seen. ABDOMEN/PELVIS: Liver: Unremarkable. Spleen: Unremarkable. Pancreas: Unremarkable. Gallbladder: Unremarkable. Kidney: Unremarkable. No kidney or ureteral stones or obstruction seen. Adrenal: Unremarkable. Bowel: The patient is status post right hemicolectomy. Vascular: Unremarkable. Lymph: Unremarkable. Peritoneum: Unremarkable. No pneumoperitoneum is seen. No significant ascites is noted. Pelvis: Moderate enlargement of the prostate gland is noted. Soft tissue: Unremarkable. Bone: Unremarkable for age. IMPRESSION: 1. Moderate enlargement of the prostate gland is noted. Correlation with physical examination, PSA level, and/or MRI are recommended. Dictated by Murtaza Burrell MD @ 11/26/2024 1:15:47 AM <Marilou Alston MD - Last Filed: 11/26/24 01:47> Discharge Plan Discharge Clinical Impression: Acute prostatitis <Starla Hare MD - Last Filed: 11/27/24 11:18> Patient Disposition: Home, Self-Care <Starla Hare MD - Last Filed: 11/27/24 11:18> Condition: Stable <Starla Hare MD - Last Filed: 11/27/24 11:18> Instructions: Prostatitis (ED) <Starla Hare MD - Last Filed: 11/27/24 11:18> Additional Instructions: As we discussed, your blood work is quite consistent with bacterial infection. The CT scan did not reveal any obvious source through the gut, lungs or chest cavity. It did show a diffuse enlargement of the prostate. This is not suspicious particularly for cancer but certainly could be a sign of acute prostatitis which is a bacterial infection of the prostate gland. I think that you may have been asymptomatic to this due to some of the neurological changes in your pelvis. There were no other obvious locations for infection based on your swabs and scans. We do have blood and urine cultures pending and will call you if we need to change therapy based on these results. No call means no changes needed. It is important that you follow-up with your primary care team regarding this infection, as we will need lab studies that cannot be performed in the emergency department like a PSA level, potentially repeat imaging of the prostate gland. You will need to be on antibiotics for the next month. Even with proper treatment, the failure rate for prostatitis can be as high as 20% so do not get discouraged if it requires a 2nd course of treatment. Continue your typical bladder management plan. Return to the emergency department if you are feeling severely weak, the fevers are not clearing within 72 hours, or there are other signs of general worsening. <Starla Hare MD - Last Filed: 11/27/24 11:18> Activity Level: No Restrictions <Starla Hare MD - Last Filed: 11/27/24 11:18> No Restrictions <Marilou Alston MD - Last Filed: 11/26/24 01:47> Discharge Diet: Regular <Starla Hare MD - Last Filed: 11/27/24 11:18> Regular <Marilou Alston MD - Last Filed: 11/26/24 01:47> Prescriptions: New ciprofloxacin HCl 500 mg tablet 500 mg PO BID Qty: 60 0RF No Action Rebif Rebidose 44 mcg/0.5 mL pen injector subcut sumatriptan succinate 100 mg tablet PO DAILY acetaminophen [Tylenol] PO atorvastatin 20 mg tablet PO multivitamin with iron [Daily Vitamin with Iron] PO cholecalciferol (vitamin D3) PO sulfamethoxazole-trimethoprim [Bactrim DS] 800-160 mg tablet 1 tab PO BID Qty: 13 0RF <Starla Hare MD - Last Filed: 11/27/24 11:18> Follow Up/Referrals: Nicolas Leach MD [Primary Care Provider] - <Starla Hare MD - Last Filed: 11/27/24 11:18> Stand Alone Forms: [facility] Info Instructions <Starla Hare MD - Last Filed: 11/27/24 11:18>
[2024-11-25 23:06] LABS: Basophils Percent Auto 0.2 % (0.0-3.0); Eosinophils Percent Auto 0.7 % (0.0-7.0); Hematocrit 37.7 % (37.0-53.0); Hemoglobin* 12.3 gm/dL (13.5-17.5); Immature Granulocytes Pct Auto 0.7 %; Lymphocytes Percent Auto 4.8 % (20-44); Mean Corpuscular HGB Conc 33 gm/dL (32-36); Mean Corpuscular Hemoglobin 31 pg (26-34); Mean Corpuscular Volume 96 fL (80-100); Monocytes Percent Auto 8.4 % (0.0-11.0); Neutrophils Percent Auto 85.2 % (42.0-72.0); Platelet Count* 258 K/uL (140-440); RDW Coefficient of Variation % 13.6 % (11.5-15.5); Red Blood Count 3.92 m/uL (4.30-5.90); White Blood Count* 20.11 K/uL (4.50-11.00)
[2024-11-25 23:09] LABS: PCR FLU A Negative PCR FLU A (Negative); PCR FLU B Negative PCR FLU B (Negative); PCR RSV Negative PCR RSV (Negative); SARS PCR* Negative SARS-CoV-2 (Negative)
[2024-11-25 23:15] LABS: Slide Review Reflex Yes
[2024-11-25 23:23] LABS: Chloride* 105 mmol/L (96-114); Potassium* 4.1 mmol/L (3.6-5.1); Sodium* 137 mmol/L (135-149)
[2024-11-25 23:26] LABS: Creatinine* 0.9 mg/dL (0.5-1.5); Estimated Glomerular Filt Rate 107 ml/min
[2024-11-25 23:27] LABS: Anion Gap 6 mEq/L (7-15); Blood Urea Nitrogen* 14 mg/dL (5-24); Calcium* 8.6 mg/dL (8.4-10.6); Carbon Dioxide* 26 mmol/L (20-32); Glucose* 107 mg/dL (60-115)
[2024-11-25 23:30] LABS: C Reactive Protein* 7.8 mg/dL (0.5-1.0)
[2024-11-25 23:45] LABS: Slide Review Acceptable Review (Acceptable)
[2024-11-25 23:48] LABS: Lactate Sepsis w/Reflex* 0.6 mmol/L (0.5-1.9)
[2024-11-26 00:10] LABS: Appearance Urine Clear (Clear); Bilirubin Urine Negative (Negative); Blood Urine Trace-lysed (Negative); Color Urine Yellow (Yellow); Glucose Urine Negative (Negative); Ketones Urine Negative (Negative); Leukocyte Esterase Urine Negative (Negative); Nitrite Urine Negative (Negative); Protein Urine Negative (Negative); Specific Gravity Urine 1.015 (1.000-1.030); Urobilinogen Urine 0.2 (0.2-1.0)
[2024-11-26 00:11] LABS: RBC Urine 0-2 (0-2); WBC Urine 0-2 (0-5)
[2024-11-26 00:30] LABS: Bilirubin Direct* 0.2 mg/dL (0.0-0.5); Bilirubin Total* 0.6 mg/dL (0.1-1.5)
[2024-11-26 00:31] LABS: Alanine Aminotransferase* 39 U/L (4-50); Alkaline Phosphatase* 71 U/L (40-150); Aspartate Amino Transferase* 31 U/L (12-35)
[2024-11-26 00:55] VITALS: BP 100/69; PULSE 65; RESP 16; TEMP 36.9; O2SAT 98
[2024-11-26] MEDS: CIPROFLOXACIN 500 MG TABLET PO (01:46)
[2024-11-26 01:52] VITALS: BP 100/69; PULSE 65; RESP 16; TEMP 36.9
== END 2024-11-26 01:52 | disposition home or self-care (01) ==
PROVIDERS: Emergency Medicine; Emergency Provider Family Medicine; PCP Family Medicine
DX: N41.9 Inflammatory disease of prostate, unspecified (principal)
CPT/HCPCS: 36415; 71260; 74177; 80048; 80076; 81001; 83605; 84145; 85025; 86140; 87040; 87631; 94761; 99284; A9270; Q9967